=== PATIENT | male | born 1995 | race Hispanic/Latino ===

== ENCOUNTER → 2024-09-09 13:40 | Outpatient (CLI) | payer OTHER, SELFPAY ==
--- NOTE | 2024-09-09 13:41 | DI.MRI.S_ITS ---
PROCEDURE: MR ANKLE LT WO CON INDICATIONS: LEFT ANKLE PAIN TECHNIQUE: Noncontrast sagittal T1 spin echo and T2 fast spin echo with fat saturation, axial proton density fast spin echo and T2 fast spin echo with fat saturation, coronal T1 spin echo and T2 fast spin echo with fat saturation through the ankle/hindfoot. COMPARISON: None. FINDINGS: Image quality: Excellent. Bones and joints: No bone marrow contusions or fractures. No hindfoot coalitions. No osteochondral injuries of the talar dome. 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 No pathologic joint effusions. Medial structures: The posterior tibialis, flexor digitorum longus, and flexor hallucis longus tendons are intact. Small amount of fluid distending flexor tendon sheath at the level of mid to distal talus and talonavicular joint is seen. The posterior tibial neurovascular bundle appears normal within the tarsal tunnel, without extrinsic mass effect. There is thickening involving deep fibers of deltoid ligament. Intrasubstance T2 hyperintense signal involving spring ligament near its distal insertion is seen. Lateral structures: The anterior talofibular, calcaneofibular, and posterior talofibular ligaments appear intact. Low-grade partial-thickness tear involving anterior tibial fibular ligament is seen. The posterior tibial fibular ligament is intact. The tibiofibular syndesmosis is normal in width at 2 mm or less. The peroneus longus tendon is thickened at the level of mid to distal calcaneus extending to the level of cuboid. The peroneus brevis tendon is intact. The sinus tarsi demonstrates normal fatty signal, without edema, fibrosis, or cyst formation. Anterior structures: The tibialis anterior, extensor hallucis longus, and extensor digitorum longus tendons appear intact. The dorsal talonavicular ligament appears thickened. Posterior and plantar structures: Achilles tendon is intact. Medial and lateral bands of the plantar fascia are of normal thickness. No abductor digiti quinti muscle atrophy to suggest Hoffman neuropathy. IMPRESSION: 1. No marrow edema. No fracture or dislocation. 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 No osteochondral injuries of talar dome. No significant joint effusion. 2. Low-grade tenosynovitis involving flexor tendons at the level of mid to distal talus and talonavicular joint. 3. Low-grade sprain involving deep fibers of deltoid ligament. Low-grade partial-thickness tear involving spring ligament near its distal insertion. 4. Low-grade partial-thickness tear involving anterior tibial fibular ligament. 5. Tlns-[id number] tendinosis involving peroneus longus tendon at the level of mid to distal calcaneus and cuboid. 6. Sprain/low-grade partial-thickness tear involving dorsal talonavicular ligament. Dictated by: Julien Michelle M.D. on 09/09/2024 at 15:52 Approved by: Julien Michelle M.D. on 09/09/2024 at 16:12
== END ==
PROVIDERS: Referring Provider Podiatrist; Visit Provider Podiatrist
DX: M25.372 Other instability, left ankle (principal); M25.572 Pain in left ankle and joints of left foot; M65.972 Unspecified synovitis and tenosynovitis, left ankle and foot; S93.422A Sprain of deltoid ligament of left ankle, initial encounter; S93.492A Sprain of other ligament of left ankle, initial encounter; S93.432A Sprain of tibiofibular ligament of left ankle, initial encounter
CPT/HCPCS: 73721

== ENCOUNTER → 2024-10-19 15:56 | Outpatient (CLI) | payer OTHER, SELFPAY ==
--- NOTE | 2024-10-19 15:59 | DI.MRI.S_ITS ---
PROCEDURE: MR ANKLE RT WO CON INDICATIONS: PAIN IN RT FOOT TECHNIQUE: Noncontrast sagittal T1 spin echo and T2 fast spin echo with fat saturation, axial proton density fast spin echo and T2 fast spin echo with fat saturation, coronal T1 spin echo and T2 fast spin echo with fat saturation through the ankle/hindfoot. COMPARISON: [facility], MR, MR ANKLE LT WO CON, 09/09/2024, 14:30. FINDINGS: Image quality: Excellent Tendons: Mild tenosynovitis of the posterior tibialis, and the flexor digitorum longus. Mild tenosynovitis of the flexor hallucis longus, at the level of the mid foot. The extensor tendons are unremarkable. The peroneal brevis, and the peroneal longus tendon are unremarkable. The distal Achilles tendon is unremarkable. Ligaments: The anterior and posterior tibiofibular ligaments are intact. The anterior and posterior talofibular ligaments are intact. The calcaneofibular ligament is intact. The deep portion deltoid ligament is intact. Sinus tarsi: No fibrosis Plantar fascia: Unremarkable Muscles: Normal in signal Bones: Faint subchondral marrow edema in the tibial plafond, degenerative. No acute fracture. Type 2 os navicularis, without associated marrow edema. No significant tibiotalar effusion. IMPRESSION: 1. Mild tenosynovitis of the flexor tendons. 2. Faint subchondral marrow edema in the tibial plafond, degenerative. 3. Type 2 os navicularis without associated marrow edema . Dictated by: Jaimee Menjivar M.D. on 10/21/2024 at 10:57 Approved by: Jaimee Menjivar M.D. on 10/21/2024 at 11:10
== END ==
LOC: MRI 15:56
PROVIDERS: Referring Provider Podiatrist; Visit Provider Podiatrist
DX: M76.821 Posterior tibial tendinitis, right leg (principal); M79.671 Pain in right foot
CPT/HCPCS: 73721